=== PATIENT | female | born 1990 | race Caucasian/White ===

== ENCOUNTER 2016-06-19 02:35 | Inpatient (IN) | payer OTHER ==
[~2016-06-19] VITALS: Ht 165.1 cm; Wt 60.8 kg
[2016-06-19] MEDS ORDERED: ROPIVACAINE 0.2% 20 ML VL EPIDURAL ONE (06:43)
[2016-06-19] MEDS ORDERED: SALINE FLUSH 10 ML FLUSH PRN (20:00)
[2016-06-19] MEDS ORDERED: METOCLOPRAMIDE 10 MG/2 ML VIAL IV PUSH PRN (20:00)
[2016-06-19] MEDS ORDERED: PHARMACY TO DOSE GENTAMICIN IV PRN (20:00)
[2016-06-19] MEDS ORDERED: ACETAMINOPHEN 325 MG TAB PO PRN (20:00)
[2016-06-19] MEDS ORDERED: ONDANSETRON 4 MG VIAL IV PUSH PRN (20:00)
[2016-06-19] MEDS ORDERED: CLINDAMYCIN 900 MG in DEXTROSE 5% 50 ML IV PRN (20:00)
[2016-06-19] MEDS ORDERED: LIDOCAINE 1% BUFFERED 1 ML SYR INTRADERM PRN (20:00)
[2016-06-19] MEDS ORDERED: FAMOTIDINE 20 MG INJ IV PRN (20:00)
[2016-06-19] MEDS ORDERED: PROMETHAZINE 25 MG/ML VIAL IV PRN (20:00)
[2016-06-19] MEDS ORDERED: LORAZEPAM 0.5 MG TAB PO PRN (20:00)
[2016-06-19] MEDS ORDERED: MORPHINE 4 MG/ML SYR IV PRN (20:00)
[2016-06-19] MEDS ORDERED: FAMOTIDINE 20 MG TAB PO PRN (20:00)
[2016-06-19] MEDS ORDERED: ALU/MAG/SIM 30 ML UDC PO PRN (20:00)
[2016-06-19] MEDS ORDERED: **NOTE TO NURSE XX SCH (20:23)
[2016-06-19] MEDS: MISOPROSTOL 100 MCG TAB PO SCH (21:29)
[2016-06-19] MEDS ORDERED: ROPIV/FENT 0.2%-2MCG/ML 100 ML EPIDURAL ONE (21:38)
[2016-06-19] MEDS ORDERED: FENTANYL 100 MCG/2 ML AMP ONE (21:39)
[2016-06-19 21:52] VITALS: Ht 165.1 cm; Wt 60.8 kg
[2016-06-19] MEDS ORDERED: GENTAMICIN 300 MG in SODIUM CHLORIDE 0.9% 100 ML IV PRN (22:15)
[2016-06-19] MEDS ORDERED: LACT RINGERS 500 ML IV PRN (23:25)
[2016-06-19] MEDS ORDERED: LACT RINGERS 500 ML IV ONE (23:25)
[2016-06-19] MEDS ORDERED: ROPIV/FENT 0.2%-2MCG/ML 100 ML EPIDURAL SCH (23:25)
[2016-06-19] MEDS ORDERED: FENTANYL 100 MCG/2 ML AMP EPIDURAL ONE (23:25)
[2016-06-19] MEDS ORDERED: SODIUM CHLORIDE 0.9% 500 ML IV PRN (23:25)
[2016-06-20] VITALS (10 sets, daily range): BP systolic 104–116; RESP 16–18; TEMP 97.9–99.1
[2016-06-20] MEDS: MISOPROSTOL 100 MCG TAB PO SCH (01:25)
[2016-06-20] MEDS ORDERED: OXYTOCIN 15 UNITS/250 ML NS 500 ML IV ONE (02:50)
[2016-06-20] MEDS ORDERED: MEASLES,MUMPS,RUBELLA VAC SUBQ.VACC ONE (03:50)
[2016-06-20] MEDS ORDERED: ZOLPIDEM 5 MG TAB PO PRN (03:50)
[2016-06-20] MEDS ORDERED: MAG HYDROX 30 ML UDC PO PRN (03:50)
[2016-06-20] MEDS ORDERED: TDaP 0.5 ML VIAL IM.VACC ONE (03:50)
[2016-06-20] MEDS: OXYTOCIN 15 UNITS/250 ML NS 250 ML IV SCH ×2 (04:20→04:35)
[2016-06-20] MEDS ORDERED: CLINDAMYCIN 900 MG in DEXTROSE 5% 50 ML IV ONE (04:45)
[2016-06-20] MEDS ORDERED: MISOPROSTOL 200 MCG TAB PO ONE (04:50)
[2016-06-20] MEDS: Ibuprofen 600 MG TAB PO PRN ×2 (06:50→12:41)
[2016-06-20] MEDS: SALINE FLUSH 10 ML FLUSH PRN ×2 (07:58→09:03)
[2016-06-20] MEDS ORDERED: **ONLY ANESTEHSIA MAY ORDER OPIATES WHILE ON EPIDURAL XX SCH (08:00)
[2016-06-20] MEDS ORDERED: DOCUSATE SOD 100 MG CAP PO SCH (09:00)
[2016-06-20] MEDS ORDERED: MISOPROSTOL 100 MCG TAB ONE (09:50)
== END 2016-06-20 12:41 | disposition home or self-care (01) | DRG 767 ==
LOC: LD 19:34
PROVIDERS: ADMIT Obstetrics & Gynecology; ATTEND Obstetrics & Gynecology
PROC: 3E0P7GC Introduction of Other Therapeutic Substance into Female Reproductive, Via Natural or Artificial Opening (ICD-10-PCS; principal; 2016-06-19)
PROC: 10D17ZZ Extraction of Products of Conception, Retained, Via Natural or Artificial Opening (ICD-10-PCS; 2016-06-20)
PROC: 10E0XZZ Delivery of Products of Conception, External Approach (ICD-10-PCS; 2016-06-20)
PROC: 3E0234Z Introduction of Serum, Toxoid and Vaccine into Muscle, Percutaneous Approach (ICD-10-PCS; 2016-06-20)
DX: O36.4XX0 Maternal care for intrauterine death, not applicable or unspecified (principal); O41.02X0 Oligohydramnios, second trimester, not applicable or unspecified; O36.0920 Maternal care for other rhesus isoimmunization, second trimester, not applicable or unspecified; O72.2 Delayed and secondary postpartum hemorrhage; O34.211 Maternal care for low transverse scar from previous cesarean delivery; Z3A.21 21 weeks gestation of pregnancy; Z37.1 Single stillbirth
CPT/HCPCS: 80053; 81240; 81241; 81291; 83090; 84439; 84443; 85025; 85300; 85303; 85306; 85384; 85610; 85613; 85730; 86147; 86644; 86645; 86723; 86747; 86777; 86778; 88305